=== PATIENT | female | born 1935 | race Caucasian/White ===

== ENCOUNTER 2020-11-30 10:23 | Emergency (ER) | payer OTHER ==
--- OUTSIDE RECORDS SUMMARY | 2020-11-30 10:27 | XMS REPORT | Continuity of Care Document ---
:1935 Author Organization [facility] t Address [address] [place] [address] Care Team Providers Name Role Phone Unavailable Unavailable Unavailable Problems This patient has no known problems. Allergies, Adverse Reactions, Alerts This patient has no known allergies or adverse reactions. Medications This patient has no known medications. Procedures This patient has no known procedures. Encounters Start End Encounter Admission Attending Care Care Encounter Source Date/Time Date/Time Type Type Clinicians Facility Department ID 2020-11-13 2020-11-13 Outpatient [facility] [id number] [facility] 2020-10-30 2020-10-30 Outpatient [facility] [id number] [facility] 2020-10-27 2020-10-27 Outpatient [facility] [id number] [facility] 2020-10-27 2020-10-27 Outpatient [facility] [id number] [facility] 2020-10-06 2020-10-06 Outpatient [facility] [id number] [facility] 2020-10-05 2020-10-05 Outpatient [facility] [id number] [facility] 2020-10-02 2020-10-02 Outpatient [facility] [id number] [facility] 00:00:00 00:00:00 [facility] ent Clinics Results This patient has no known results.
--- NOTE | 2020-11-30 12:14 | RAD REPORT ---
EXAM DESCRIPTION: US - Extremity Nonvascular Limited - 11/30/2020 11:11 am CLINICAL HISTORY: possible abscess Soft tissue infection right ankle medially COMPARISON: No comparisons TECHNIQUE: Real-time sonographic evaluation of the area of interest was performed. FINDINGS: Soft tissue edema, subcutaneous fluid and skin thickening is noted interest medial right a nkle. A drainable abscess collection is not evident.
--- NOTE | 2020-11-30 12:39 | RAD REPORT ---
EXAM DESCRIPTION: RAD - Ankle Right 3 View - 11/30/2020 11:59 am CLINICAL HISTORY: PAIN COMPARISON: No comparisons FINDINGS: Mild soft tissue swelling is present. No fracture, dislocation or aggressive marrow lesion .
--- NOTE | 2020-11-30 12:46 | ER ---
Nurse's Notes [facility] Name: Laureen Pressley Age: 85 yrs Sex: Female : 1935 Arrival Date: 11/30/2020 Time: 10:29 Bed 18 Private MD: Vignesh Chauhan Diagnosis: Cellulitis, unspecified-Right medical ankle Presentation: 11/30 10:33 Chief complaint: Patient's son or daughter states: she has a sore on the inside of her tw2 RIGHT ankle, it started out maybe about 3 months ago that maybe it started out as an ant bite, she swears she is not scratching it. states it doesn't itch, but it hurts her. and now there is 2 spots and it is definitely red. Coronavirus screen: At this time, the client does not indicate any symptoms associated with coronavirus-19. Ebola Screen: Patient denies travel to an Ebola-affected area in the 21 days before illness onset. Initial Sepsis Screen: Does the patient meet any 2 criteria? No. Patient's initial sepsis screen is negative. Does the patient have a suspected source of infection? No. Patient's initial sepsis screen is negative. Risk Assessment: Do you want to hurt yourself or someone else? Patient reports no desire to harm self or others. Onset of symptoms was November 30, 2020. 10:33 Method Of Arrival: Ambulatory tw2 10:33 Acuity: JOSE L 4 tw2 Triage Assessment: 10:36 Bite description: bite sustained to right medial malleolus by n/a, animal information: tw2 vaccination(s) is not applicable. General: Appears in no apparent distress. Behavior is calm, cooperative, appropriate for age. Pain: Complains of pain in right foot. Historical: - Allergies: 10:36 PENICILLINS; tw2 - Home Meds: 10:36 "unknown" [Active]; tw2 10:59 "not really" per son [Active]; tw2 - PSHx: 10:36 right shoulder; tw2 - Immunization history:: Adult Immunizations. - Social history:: Smoking status: . Screenin:58 Abuse screen: Denies threats or abuse. Nutritional screening: No deficits noted. tw2 Tuberculosis screening: No symptoms or risk factors identified. Fall Risk Secondary diagnosis (15 points) impaired mobility. Assessment: 11:31 General: Appears in no apparent distress. comfortable. General: Behavior is calm, kg cooperative, appropriate for age, quiet. Pain: Complains of pain in right ankle, right Achilles, right heel, medial aspect of right foot and anterior aspect of right ankle Pain currently is 4 out of 10 on a pain scale. at worst was 4 out of 10 on a pain scale. level that patient reports is acceptable is 4 out of 10 on a pain scale. Quality of pain is described as burning, Pain began "its been going on for a few weeks but just gotten worse". Neuro: No deficits noted. Cardiovascular: No deficits noted. Cardiovascular: Pulses are 3+ in right dorsalis pedis artery and left dorsalis pedis artery. 11:33 Respiratory: No deficits noted. Denies. GI: No deficits noted. : No deficits noted. kg EENT: No deficits noted. Derm: Skin has blisters on Two small blisters to right ankle area Skin is pink, warm \\T\\ dry. pink, red, Wound noted right ankle. Musculoskeletal: No deficits noted. Vital Signs: 10:33 BP 150 / 81; Pulse 76; Resp 17; Temp 98.7(TE); Pulse Ox 96% on R/A; Weight 63.5 kg (R); tw2 11:20 BP 151 / 67; Pulse 66; Resp 20; Pulse Ox 97% on R/A; kg 12:00 BP 148 / 65; Pulse 61; Resp 20; Pulse Ox 97% on R/A; kg 12:59 BP 143 / 67; Pulse 82; Resp 20; Pulse Ox 98% on R/A; kg ED Course: 10:29 Patient arrived in ED. hh 10:29 Vignesh Chauhan DO is Private Physician. hh 10:32 Feng Hernandez MD is Attending Physician. kdr 10:35 Triage completed. tw2 10:37 Arm band placed on. tw2 10:37 Bed in low position. Call light in reach. Adult w/ patient. tw2 10:41 Niecy Rowe, QUIRINO is Primary Nurse. kg 11:08 US Extrmty Nonvasular Limited In Process Unspecified. EDMS 11:59 Ankle Right 3 View XRAY In Process Unspecified. EDMS 12:44 Vignesh Chauhan DO is Referral Physician. kdr 12:58 No provider procedures requiring assistance completed. Patient did not have IV access kg during this emergency room visit. Administered Medications: No medications were administered Outcome: 12:45 Discharge ordered by . kdr 12:58 Discharged to home ambulatory, with friend. kg 12:58 Condition: good 12:58 Discharge instructions given to patient, family, Instructed on discharge instructions, follow up and referral plans. Demonstrated understanding of instructions, follow-up care, medications, Prescriptions given X 1. 13:00 Patient left the ED. kg Signatures: Dispatcher [employer] EDMS Feng Hernandez MD MD kdr Wise, Tara RN RN tw2 Niecy Rowe, RN RN kg [facility]
--- NOTE | 2020-11-30 12:46 | EDPHYS ---
Physician Documentation [facility] Name: Laureen Pressley Age: 85 yrs Sex: Female : 1935 Arrival Date: 11/30/2020 Time: 10:29 Bed 18 Private MD: Tien [facility] ED Physician Feng Hernandez HPI: 11/30 17:38 This 85 yrs old Female presents to ER via Ambulatory with complaints of kdr Insect Bite. 17:38 The patient presents with pain, that is chronic, swelling, tenderness. The complaints kdr affect the right ankle. Onset: The symptoms/episode began/occurred gradually, 3 month(s) ago. Context: The problem was sustained at home, resulted from an unknown cause, The mechanism of injury is unknown. The patient can fully bear weight on the affected extremity. the patient is able to ambulate, without difficulty. Associated signs and symptoms: The patient has no apparent associated signs or symptoms. Modifying factors: The symptoms are alleviated by nothing, the symptoms are aggravated by movement, Weight bearing. Severity of symptoms: At their worst the symptoms were very mild, in the emergency department the symptoms are unchanged. The patient has experienced similar episodes in the past, chronically. The patient has been recently seen by a physician: the patient's primary care provider. Historical: - Allergies: 10:36 PENICILLINS; tw2 - Home Meds: 10:36 "unknown" [Active]; tw2 10:59 "not really" per son [Active]; tw2 - PSHx: 10:36 right shoulder; tw2 - Immunization history:: Adult Immunizations. - Social history:: Smoking status: . ROS: 18:00 Constitutional: Negative for fever, chills, and weight loss, Eyes: Negative for injury, kdr pain, redness, and discharge, Neck: Negative for injury, pain, and swelling, Cardiovascular: Negative for chest pain, palpitations, and edema, Respiratory: Negative for shortness of breath, cough, wheezing, and pleuritic chest pain, Abdomen/GI: Negative for abdominal pain, nausea, vomiting, diarrhea, and constipation, Back: Negative for injury and pain, : Negative for injury, bleeding, discharge, and swelling, MS/Extremity: Negative for injury and deformity, Neuro: Negative for headache, weakness, numbness, tingling, and seizure activity. Psych: Negative for depression, anxiety, suicide ideation, homicidal ideation, and hallucinations, Allergy/Immunology: Negative for hives, rash, and allergies, Endocrine: Negative for neck swelling, polydipsia, polyuria, polyphagia, and marked weight changes, Hematologic/Lymphatic: Negative for swollen nodes, abnormal bleeding, and unusual bruising. 18:00 Skin: Positive for cellulitis, discoloration, erythema, of the right medial malleolus. Exam: 18:00 Constitutional: This is a well developed, well nourished patient who is awake, alert, kdr and in no acute distress. Head/Face: Normocephalic, atraumatic. Eyes: Pupils equal round and reactive to light, extra-ocular motions intact. Lids and lashes normal. Conjunctiva and sclera are non-icteric and not injected. Cornea within normal limits. Periorbital areas with no swelling, redness, or edema. 18:00 Skin: cellulitis, that is minimal, that is mild, on the right medial malleolus. Vital Signs: 10:33 BP 150 / 81; Pulse 76; Resp 17; Temp 98.7(TE); Pulse Ox 96% on R/A; Weight 63.5 kg (R); tw2 11:20 BP 151 / 67; Pulse 66; Resp 20; Pulse Ox 97% on R/A; kg 12:00 BP 148 / 65; Pulse 61; Resp 20; Pulse Ox 97% on R/A; kg 12:59 BP 143 / 67; Pulse 82; Resp 20; Pulse Ox 98% on R/A; kg MDM: 12:45 Patient medically screened. kdr 18:00 Data reviewed: vital signs, nurses notes, lab test result(s). Counseling: I had a kdr detailed discussion with the patient and/or guardian regarding: the historical points, exam findings, and any diagnostic results supporting the discharge/admit diagnosis, radiology results, the need for outpatient follow up. 11/30 10:53 Order name: Ankle Right 3 View XRAY; Complete Time: 12:41 kdr 11/30 10:53 Order name: US Extrmty Nonvasular Limited; Complete Time: 12:41 kdr Administered Medications: No medications were administered Disposition: 11/30/20 12:45 Discharged to Home. Impression: Cellulitis, unspecified - Right medical ankle. - Condition is Stable. - Discharge Instructions: Cellulitis, Adult. - Prescriptions for Keflex 500 mg Oral Capsule - take 1 capsule by ORAL route every 8 hours for 10 days; 30 capsule. - Medication Reconciliation Form, Thank You Letter, Antibiotic Education form. - Follow up: Vignesh Chauhan DO; When: 2 - 3 days; Reason: If symptoms return, Further diagnostic work-up, Recheck today's complaints, Continuance of care, Re-evaluation by your physician. - Problem is an ongoing problem. - Symptoms have improved. Signatures: Dispatcher [employer] EDRI Feng Hernandez MD MD kdr Ewa Goss RN RN tw2 Niecy Rowe RN RN kg Corrections: (The following items were deleted from the chart) 13:00 12:45 11/30/2020 12:45 Discharged to Home. Impression: Cellulitis, unspecified - Right kg medical ankle. Condition is Stable. Forms are Medication Reconciliation Form, Thank You Letter, Antibiotic Education, Prescription Opioid Use. Follow up: Vignesh Chauhan; When: 2 - 3 days; Reason: If symptoms return, Further diagnostic work-up, Recheck today's complaints, Continuance of care, Re-evaluation by your physician. Problem is an ongoing problem. Symptoms have improved. kdr
[2020-11-30 13:15] VITALS: TEMP 98.7
[2020-11-30 13:20] VITALS: BP 143/67; O2SAT 98
== END 2020-11-30 13:00 | disposition home or self-care (01) ==
LOC: ER 10:23
DX: L03.115 Cellulitis of right lower limb (principal); Z88.0 Allergy status to penicillin
CPT/HCPCS: 76882; 99283

== ENCOUNTER 2021-05-06 09:24 | Emergency (ER) | payer OTHER ==
--- OUTSIDE RECORDS SUMMARY | 2021-05-06 09:27 | XMS REPORT | Continuity of Care Document ---
:1935 Author Organization [facility] t Address [address] [place] [address] Care Team Providers Name Role Phone Unavailable Unavailable Unavailable Problems This patient has no known problems. Allergies, Adverse Reactions, Alerts This patient has no known allergies or adverse reactions. Medications This patient has no known medications. Procedures This patient has no known procedures. Encounters Start End Encounter Admission Attending Care Care Encounter Source Date/Time Date/Time Type Type Clinicians Facility Department ID 2021-05-03 2021-05-03 ambulatory [facility] [id number] [facility] 2021-04-10 2021-04-10 Outpatient [facility] [id number] [facility] 2021-03-07 2021-03-07 Outpatient [facility] [id number] [facility] 2021-03-07 2021-03-07 Out[facility] [id number] [facility] 2021-01-26 2021-01-26 [facility] [id number] [facility] 2020-12-21 2020-12-21 [facility] [id number] [facility] 2020-12-14 2020-12-14 [facility] [id number] 2020-11-30 2020-11-30 [facility] [id number] [facility] 2020-11-13 2020-11-13 [facility] [id number] [facility] 2020-10-30 2020-10-30 [facility] [id number] [facility] 2020-10-27 2020-10-27 [facility] [id number] [facility] 2020-10-27 2020-10-27 [facility] [id number] [facility] 2020-10-06 2020-10-06 [facility] [id number] [facility] 2020-10-05 2020-10-05 [facility] [id number] [facility] 2020-10-02 2020-10-02 [facility] [id number] [facility] Results This patient has no known results.
--- NOTE | 2021-05-06 09:56 | RAD REPORT ---
EXAM DESCRIPTION: CT - Spine Lumbar Wo Con - 05/06/2021 9:46 am CLINICAL HISTORY: Radiculopathy. Pain;Lower back pain COMPARISON: No comparisons TECHNIQUE: Axial noncontrast CT imaging of the lumbar spine was performed with coronal and sagittal re-formatted images. All CT scans are performed using dose optimization technique as appropriate and may include automated exposure control or mA/KV adjustment according to patient size. FINDINGS: Inferior endplate deformity with fracture lines present at L1 with slight bony retropulsio n but no significant central spinal stenosis. Less than 20% loss of height is present. Other degenera tive changes are noted which are mild. Ectasia of the descending thoracic aorta. Right renal cyst. Paraspinal tissues are normal in thickness. No paraspinal abscess or hematoma seen. Intervertebral disc disease assessment is inherently limited by CT. Within these limitations, no high -grade canal stenosis suspected. IMPRESSION: Acute versus subacute L1 compression fracture with less than 20% loss of height and mini mal bony retropulsion .
[2021-05-06] MEDS ORDERED: TRAMADOL HCL 50 MG TAB ONE (10:00)
--- NOTE | 2021-05-06 10:44 | EDPHYS ---
Physician Documentation [facility] Name: Laureen Pressley Age: 85 yrs Sex: Female : 1935 Arrival Date: 05/06/2021 Time: 09:28 Bed External Waiting Private MD: Vignesh Chauhan ED Physician Zia Cruz HPI: 05/06 09:51 This 85 yrs old Female presents to ER via Wheelchair with complaints of Back kb Pain. 09:51 The patient presents with pain that is chronic, with no known mechanism of injury. The kb symptoms are located in the low back. Onset: The symptoms/episode began/occurred weeks ago. The pain does not radiate. Associated signs and symptoms: The patient has no apparent associated signs or symptoms. The problem was sustained from unknown cause. Modifying factors: The patient symptoms are alleviated by nothing, the patient symptoms are aggravated by any movement. Severity of symptoms: At their worst the symptoms were moderate, in the emergency department the symptoms are unchanged. The patient has not experienced similar symptoms in the past. The patient has not recently seen a physician. Pt reports low back pain for weeks. Came in today because tylenol and ibuprofen weren't working. Son requests CT. Historical: - Allergies: 09:48 PENICILLINS; iw - Immunization history:: Adult Immunizations up to date. - Social history:: Smoking status: Patient denies any tobacco usage or history of. ROS: 09:50 Constitutional: Negative for fever, chills, and weight loss. kb 09:50 Back: Positive for pain at rest, pain with movement, of the low back area. 09:50 All other systems are negative. Exam: 09:50 Constitutional: This is a well developed, well nourished patient who is awake, alert, kb and in no acute distress. Head/Face: Normocephalic, atraumatic. ENT: Moist Mucous membranes Respiratory: Respirations even and unlabored. No increased work of breathing, no retractions or nasal flaring. Skin: Warm, dry with normal turgor. Normal color. MS/ Extremity: Pulses equal, no cyanosis. Neurovascular intact. Full, normal range of motion. Neuro: Awake and alert, GCS 15, oriented to person, place, time, and situation. Moves all extremities. Normal gait. Psych: Awake, alert, with orientation to person, place and time. Behavior, mood, and affect are within normal limits. 09:50 Back: pain, that is moderate, ROM is painful, normal spinal alignment noted. Vital Signs: 10:05 BP 142 / 84; Pulse 85; Resp 18; Temp 98.2; Pulse Ox 99% on R/A; sl2 MDM: 09:31 Patient medically screened. kb 09:50 Data reviewed: vital signs, nurses notes. Data interpreted: Pulse oximetry: on room air kb is 100 %. Interpretation: normal. 10:23 Counseling: I had a detailed discussion with the patient and/or guardian regarding: the kb historical points, exam findings, and any diagnostic results supporting the discharge/admit diagnosis, radiology results, the need for outpatient follow up, a family practitioner, to return to the emergency department if symptoms worsen or persist or if there are any questions or concerns that arise at home. 10:43 ED course: Tx PRODUCT SUPPORT ANALYST aware reviewed. No prescriptions found. kb 05/06 09:34 Order name: CT Lumbar Spine Wo Con; Complete Time: 10:07 kb Administered Medications: 10:04 Drug: traMADol 25 mg Route: PO; df1 Disposition: 05/07 05:53 Co-signature as Attending Physician, Zia Cruz MD I agree with the assessment and henrietta plan of care. Disposition Summary: 05/06/21 10:44 Discharge Ordered Location: Home kb Condition: Stable kb Diagnosis - Compression fracture L1 kb - Low back pain kb Followup: kb - With: Emergency Department - When: As needed - Reason: Worsening of condition Followup: kb - With: Private Physician - When: 2 - 3 days - Reason: Recheck today's complaints, Continuance of care, Re-evaluation by your physician Discharge Instructions: - Discharge Summary Sheet kb - Spinal Compression Fracture kb Forms: - Medication Reconciliation Form kb - Thank You Letter kb - Antibiotic Education kb - Prescription Opioid Use kb Prescriptions: - Tramadol 50 mg Oral Tablet - take 0.5 tablet by ORAL route every 8 hours as needed; 12 tablet; Refills: 0, kb Product Selection Permitted Signatures: Dispatcher [employer] EDMS Shagufta Hairston FNP-C FNP-Ckb Anderson, Corey, MD MD cha Williams, Irene, RN Teresa Denise df1
--- NOTE | 2021-05-06 10:44 | ER ---
Nurse's Notes [facility] Name: Laureen Pressley Age: 85 yrs Sex: Female : 1935 Arrival Date: 05/06/2021 Time: 09:28 Bed External Waiting Private MD: Vignesh Chauhan Diagnosis: Compression fracture L1;Low back pain Presentation: 05/06 09:48 Chief complaint: Patient's son or daughter states: pt has had low back pain X 3 weeks , iw no known injury. Initial Sepsis Screen: Does the patient meet any 2 criteria? No. Patient's initial sepsis screen is negative. Does the patient have a suspected source of infection? No. Patient's initial sepsis screen is negative. Risk Assessment: Do you want to hurt yourself or someone else? Patient reports no desire to harm self or others. Onset of symptoms was April 16, 2021. 09:48 Method Of Arrival: Wheelchair iw 09:48 Acuity: JOSE L 3 iw 10:20 Coronavirus screen: Vaccine status: Patient reports receiving the 2nd dose of the covid sl2 vaccine. 10:20 Ebola Screen: Patient negative for fever greater than or equal to 101.5 degrees sl2 Fahrenheit, and additional compatible Ebola Virus Disease symptoms Patient denies exposure to infectious person. Patient denies travel to an Ebola-affected area in the 21 days before illness onset. No symptoms or risks identified at this time. Historical: - Allergies: 09:48 PENICILLINS; iw - Immunization history:: Adult Immunizations up to date. - Social history:: Smoking status: Patient denies any tobacco usage or history of. Screenin:58 Abuse screen: Denies threats or abuse. Nutritional screening: No deficits noted. df1 Tuberculosis screening: No symptoms or risk factors identified. Never had TB. Possible symptoms: None Risk factors: None. Fall Risk None identified. No fall in past 12 months (0 pts). No secondary diagnosis (0 pts). No IV (0 pts). Ambulatory Aid- None/Bed Rest/Nurse Assist (0 pts). Gait- Impaired (20 pts.). Mental Status- Oriented to own ability (0 pts). Assessment: 09:57 Reassessment: Patient AAO x 3. ambulates with cane, presents to ED with c/o lower back sl2 pain x 3 weeks, denies recent fall or injury, no swelling, deformity or bruising noted to affected area. Denies previous back injury. 09:58 General: Appears uncomfortable, well groomed, well developed, Behavior is calm, df1 cooperative, appropriate for age, Reports lower back pain. 09:58 Neuro: No deficits noted. Level of Consciousness is awake, alert, obeys commands, df1 Oriented to person, place, time, situation, Appropriate for age Polymer Tester are equal bilaterally Moves all extremities. Speech is normal. Cardiovascular: No deficits noted. Reports. Respiratory: No deficits noted. Reports Airway is patent Trachea midline Respiratory effort is even, unlabored, Respiratory pattern is regular, symmetrical, Breath sounds are clear bilaterally. GI: No deficits noted. No signs and/or symptoms were reported involving the gastrointestinal system. : No deficits noted. No signs and/or symptoms were reported regarding the genitourinary system. EENT: No deficits noted. Derm: No deficits noted. No signs and/or symptoms reported regarding the dermatologic system. Musculoskeletal: Reports pain in low back area Denies weakness in low back area numbness in, low back area. 09:58 Pain: Complains of pain in low back area Pain does not radiate. Pain currently is 8 out iw of 10 on a pain scale. Quality of pain is described as aching, sharp, Pain began gradually, Is continuous, Alleviated by rest, Aggravated by exercise, increased activity, repositioning, weight bearing, Noted to be grimacing, resistant to movement. Vital Signs: 10:05 BP 142 / 84; Pulse 85; Resp 18; Temp 98.2; Pulse Ox 99% on R/A; sl2 ED Course: 09:28 Patient arrived in ED. as 09:28 Vignesh Chauhan DO is Private Physician. as 09:29 Shagufta Hairston FNP-C is PHCP. kb 09:29 Zia Cruz MD is Attending Physician. kb 09:46 CT Lumbar Spine Wo Con In Process Unspecified. EDMS 09:48 Triage completed. iw 09:49 Arm band placed on. iw 09:58 Patient has correct armband on for positive identification. Bed in low position. Call df1 light in reach. Side rails up X2. Adult w/ patient. 09:58 No provider procedures requiring assistance completed. Patient did not have IV access df1 during this emergency room visit. 09:59 Furlich, Teresa is Primary Nurse. df1 Administered Medications: 10:04 Drug: traMADol 25 mg Route: PO; df1 Outcome: 10:44 Discharge ordered by . stella 11:00 Discharged to home via wheelchair, with family. sl2 11:00 Condition: stable 11:00 Discharge instructions given to patient, family, Instructed on discharge instructions, follow up and referral plans. medication usage, Demonstrated understanding of instructions, follow-up care, medications, Prescriptions given X 1. 11:42 Patient left the ED. iw Signatures: Dispatcher [employer] EDMS Shagufta Hairston, MACHINE DEBURRER-C MACHINE DEBURRER-Christiane Duron as Yessi Barlow, RN RN iw Teresa Vivar df1 Antonella Gatica RN RN sl2 Corrections: (The following items were deleted from the chart) 11:06 09:58 Pain: Complains of pain in low back area Pain does not radiate. Pain currently is iw 8 out of 10 on a pain scale. Quality of pain is described as aching, sharp, Pain began gradually, Is continuous, Alleviated by rest, Aggravated by exercise, increased activity, repositioning, weight bearing, Noted to be grimacing, resistant to movement, df1
[2021-05-06 11:48] VITALS: BP 142/84; TEMP 98.2; O2SAT 99
== END 2021-05-06 11:42 | disposition home or self-care (01) ==
LOC: ER 09:24
DX: M48.56XA Collapsed vertebra, not elsewhere classified, lumbar region, initial encounter for fracture (principal); Z88.0 Allergy status to penicillin
CPT/HCPCS: 72131; 99283